=== PATIENT | female | born 1975 | race Two or more races ===

== ENCOUNTER 2017-05-09 21:54 | Emergency (ER) | payer MEDICAID ==
[~2017-05-09] VITALS: Ht 160 cm; Wt 77.1 kg
[2017-05-09 23:03] VITALS: BP 105/82
[2017-05-09] MEDS ORDERED: CYCLOBENZAPRINE HCL 10 MG TAB PO ONE (23:15)
[2017-05-09] MEDS ORDERED: KETOROLAC TROMETH 60MG/2ML VIAL IM ONE (23:15)
== END 2017-05-09 23:41 | disposition home or self-care (01) ==
LOC: ER 21:54
DX: M43.6 Torticollis (principal); F17.210 Nicotine dependence, cigarettes, uncomplicated; Z98.51 Tubal ligation status
CPT/HCPCS: 72040; 81025; 96372; 99285; J1885